=== PATIENT | male | born 1960 | race Caucasian/White ===

== ENCOUNTER 2022-10-18 21:28 | Emergency (ER) | payer OTHER ==
[~2022-10-18] VITALS: Ht 185.4 cm; Wt 79.4 kg
--- NOTE | 2022-10-18 21:41 | NUR ---
[id number] FROM HOME C/O DIZZINESS +N/V X1 DAY. EMS ADMIN ZOFRAN 4MG IV. PLACED IN BED, AWAITING MD CHOE.
[2022-10-18] MEDS ORDERED: MECLIZINE HCL 12.5 MG TABLET PO ONE (22:30)
[2022-10-18] MEDS ORDERED: IV NS 0.9% 1,000 ML BAG IV ONE (22:30)
[2022-10-18] MEDS ORDERED: METOCLOPRAMIDE HCL 10 MG/2 ML VIAL IV ONE (22:30)
[2022-10-18] MEDS ORDERED: METOCLOPRAMIDE HCL 10 MG/2 ML VIAL ONE (22:36)
[2022-10-18] MEDS ORDERED: MECLIZINE HCL 25 MG TABLET ONE (22:36)
[2022-10-18 22:51] LABS: BASOPHILS % (AUTO) 0.2 % (0.0-2.0); HEMATOCRIT 40 % (39-51); HEMOGLOBIN 13.4 g/dL (13.5-17.5); LYMPHOCYTES # (AUTO) 1.1 K/uL (0.8-4.8); LYMPHOCYTES % (AUTO) 7.3 % (20.0-44.0); MEAN CORPUSCULAR HGB CONC 33 g/dl (31.0-36.0); MEAN CORPUSCULAR VOLUME 91 fL (80-96); MONOCYTES # (AUTO) 0.6 K/uL (0.1-1.30); MONOCYTES % (AUTO) 4.2 % (2.0-12.0); NEUTROPHILS # (AUTO) 13.2 K/uL (1.8-8.9); NEUTROPHILS % (AUTO) 88.3 % (43.0-81.0); PLATELET COUNT (AUTO) 184 K/uL (150-450); RED BLOOD CELL COUNT(AUTO) 4.41 MIL/uL (4.5-6.0); WHITE BLOOD COUNT (AUTO) 14.9 K/uL (4.3-11.0)
[2022-10-18 23:03] LABS: CALCIUM, SERUM 9.6 mg/dL (8.5-10.1); CREATININE 1.1 mg/dL (0.6-1.3); POTASSIUM 3.4 mmol/L (3.5-5.1)
[2022-10-19] MEDS ORDERED: DIAZEPAM 5 MG TABLET PO ONE (01:00)
[2022-10-19] MEDS ORDERED: DIAZEPAM 5 MG TABLET ONE (01:01)
[2022-10-19] MEDS ORDERED: MECL-159 PO (03:00)
[2022-10-19] MEDS ORDERED: PRED20TA PO (03:00)
--- NOTE | 2022-10-19 03:11 | NUR ---
Patient discharged to home in stable condition. Written and verbal after care instructions given. Patient verbalizes understanding of instruction. IV removed. Catheter intact and site benign. Pressure and 4x4 applied to site. No bleeding noted.
[2022-10-19 03:12] VITALS: BP 137/74; TEMP 98.1; O2SAT 99
== END 2022-10-19 03:13 | disposition home or self-care (01) ==
LOC: ER 21:35
DX: H81.03 Meniere's disease, bilateral (principal); Z60.2 Problems related to living alone; Z79.899 Other long term (current) drug therapy
CPT/HCPCS: 99285; 96374; 96361; 93005; 85025; 80048; 36415; J8597; J2765; J7030